=== PATIENT | female | born 1970 | race Caucasian/White ===

== ENCOUNTER 2017-09-25 06:37 | Inpatient (IN) | payer BC ==
[2017-09-25] VITALS (19 sets, daily range): BP systolic 81–133; BP diastolic 39–76
[~2017-09-25] VITALS: Ht 156 cm; Wt 54.9 kg
[2017-09-25] MEDS ORDERED: cefOXitin Sod 2 GM in D5W 110 ML IVPB ONE (07:00)
[2017-09-25] MEDS ORDERED: cefOXitin 2gm Inj ONE (07:11)
[2017-09-25] MEDS ORDERED: Bupivacaine 0.5% Inj 30 ml vial INJ ONE (07:12)
[2017-09-25] MEDS ORDERED: Ropivacaine 5mg/ml Vial 30ml INJ ONE (07:12)
[2017-09-25] MEDS: D5 1/2NS w/KCl 20mEq 1,000 ML IV SCH ×3 (07:26→23:57)
--- NOTE | 2017-09-25 07:26 | Pre-Procedure Note/Attestation ---
Pre-Procedure Note/Attestation Complete Prior to Procedure Planned Procedure: not applicable Procedure Narrative: laparoscopically assisted vaginal hysterectomy, possible bilateral salpingectomy , possible total abdominal hysterectomy Indications for Procedure Pre-Operative Diagnosis: symptomatic uterine fibroids Attestation I attest that I discussed the nature of the procedure; its benefits; risks and complications; and alternatives (and the risks and benefits of such alternatives ), prior to the procedure, with the patient (or the patient's legal used equipment sales representative). I attest that, if there was a reasonable possibility of needing a blood transfusion, the patient (or the patient's legal used equipment sales representative) was given the [place] Department [employer] Services standardized written summary, pursuant to the Perico Alex Blood Safety Act ([place] Health and Safety Code # 1645, as amended). I attest that I re-evaluated the patient just prior to the surgery and that there has been no change in the patient's H&P, except as documented below: MILAGRO GARDINER Sep 25, 2017 07:26
[2017-09-25] MEDS ORDERED: ProvayBlue 5mg/ml 10ml amp INJ ONE (07:30)
[2017-09-25] MEDS ORDERED: Ketorolac 30mg Inj IV PRN ×2 (07:30→10:45)
[2017-09-25] MEDS ORDERED: Norco 10mg/325mg tab ORAL PRN (07:30)
[2017-09-25] MEDS ORDERED: DiphenhydrAMINE 50mg/ml Inj IVP PRN (07:30)
[2017-09-25] MEDS ORDERED: HYDROmorphone 1mg/ml Carpuject IVP PRN ×2 (07:30→15:30)
[2017-09-25] MEDS ORDERED: Zolpidem 5mg tab ORAL PRN (07:30)
[2017-09-25] MEDS ORDERED: WELLNESS FORMULA PO (07:40)
[2017-09-25] MEDS ORDERED: FOLATE PO (07:40)
[2017-09-25] MEDS ORDERED: [UNRECOGNIZED DRUG - OTHER] PO (07:40)
[2017-09-25] MEDS ORDERED: [UNRECOGNIZED DRUG - OTHER] PO (07:40)
[2017-09-25] MEDS ORDERED: NS Irrig 1000ml IRRIG ONE (08:00)
--- NOTE | 2017-09-25 10:33 | Anethesia Preoperative Eval ---
Anesthesia Pre-op PMH/ROS General Date of Evaluation: Sep 25, 2017 Time of Evaluation: 07:00 Anesthesiologist: joselin ASA Score: ASA 1 Mallampati Score Class I : Soft palate, uvula, fauces, pillars visible Class II: Soft palate, uvula, fauces visible Class III: Soft palate, base of uvula visible Class IV: Only hard plate visible Mallampati Classification: Class I Anesthesia History: none Family History: no anesthesia problems Allergies: Coded Allergies: No Known Allergies (Unverified , 09/24/17) Anesthesia Pre-op Phys. Exam Physician Exam Last Vital Signs Date Time Temp Pulse Resp B/P (MAP) Pulse Ox O2 Delivery O2 Flow Rate FiO2 09/25/17 07:33 98.2 92 20 133/76 100 Room Air Airway Exam Mallampati Score: Class I Anesthesia Pre-op A/P Labs Chemistry Test 09/25/17 07:35 Human Chorionic Gonadotropin, Qual Negative Serum Test Test 09/25/17 07:35 Human Chorionic Gonadotropin, Qual Negative Martni Castrejon MD Sep 25, 2017 10:33
[2017-09-25] MEDS ORDERED: Hydromorphone 0.5mg/0.5ml inj IVP PRN (10:45)
[2017-09-25] MEDS ORDERED: fentaNYL 100 mcg/2 mL IV PRN (10:45)
--- NOTE | 2017-09-25 11:45 | Immediate Post-Op Evaluation ---
Immediate Post-Op Evalulation Immediate Post-Op Evalulation Procedure: lap ass vag hystrectomy Date of Evaluation: Sep 25, 2017 Time of Evaluation: 11:44 IV Fluids: 750 Estimated Blood Loss: 350 Urinary Output: 200 Nausea: No Vomiting: No Patient Status: awake Given Within 1 Hr of Incision: Yes Martin Castrejon MD Sep 25, 2017 11:45
[2017-09-25] MEDS: Norco 5mg/325mg tab ORAL PRN (15:34)
[2017-09-25] MEDS ORDERED: ceFAZolin sod 1 GM in D5W 55 ML IV ONE (16:00)
[2017-09-25] MEDS ORDERED: Ketorolac 30mg Inj IV SCH (16:00)
[2017-09-25] MEDS: Docusate 100mg cap ORAL SCH (17:33)
[2017-09-25] MEDS: Ketorolac 30mg Inj IV SCH (18:13)
[2017-09-25 23:55] LABS: MEAN CORPUSCULAR HEMOGLOBIN 31.1 PG (27.0-31.0); MEAN CORPUSCULAR HGB CONC 33.7 G/DL (32.0-36.0); MEAN CORPUSCULAR VOLUME 92 FL (80-99); MEAN PLATELET VOLUME 8.5 FL (6.5-10.1); PLATELET COUNT 215 K/UL (150-450); RED BLOOD COUNT 2.64 M/UL (4.20-5.40); RED CELL DISTRIBUTION WIDTH 12.3 % (11.6-14.8); WHITE BLOOD COUNT 12.9 K/UL (4.8-10.8)
[2017-09-26] VITALS (8 sets, daily range): BP systolic 105–132; BP diastolic 61–72
[2017-09-26 00:23] LABS: BAND NEUTROPHILS % (MANUAL) 0 % (0-8); BASOPHILS % (MANUAL) 0 % (0-2); EOSINOPHILS % (MANUAL) 0 % (0-3); LYMPHOCYTES % (MANUAL) 6 % (20-45); NEUTROPHILS % (MANUAL) 91 % (45-75); PLATELET ESTIMATE ADEQUATE; PLATELET MORPHOLOGY NORMAL; TOTAL CELLS COUNTED 100
[2017-09-26] MEDS: Ketorolac 30mg Inj IV SCH ×2 (01:06→07:08)
--- NOTE | 2017-09-26 01:07 | Brief Operative Note ---
Immediate Post Operative Note Operative Note Pre-op Diagnosis: symptomatic uterine fibroids Procedure: laparoscopically assisted vaginal hysterectomy and bilateral salpingectomy Post-op Diagnosis: same Surgeon: cheyanne gardiner Solution Designer: adelia sánchez Anesthesia: general Specimen: yes Complications: none Condition: stable Fluids: 750cc Estimated Blood Loss: volume - 350cc Drains: none Implant(s) used?: No CHEYANNE GARDINER Sep 26, 2017 01:07
[2017-09-26] MEDS: Norco 5mg/325mg tab ORAL PRN ×2 (04:59→19:17)
[2017-09-26] MEDS: D5 1/2NS w/KCl 20mEq 1,000 ML IV SCH (07:32)
[2017-09-26 07:47] LABS: MEAN CORPUSCULAR HEMOGLOBIN 31.6 PG (27.0-31.0); MEAN CORPUSCULAR HGB CONC 34.2 G/DL (32.0-36.0); MEAN CORPUSCULAR VOLUME 92 FL (80-99); MEAN PLATELET VOLUME 8.1 FL (6.5-10.1); PLATELET COUNT 209 K/UL (150-450); RED BLOOD COUNT 2.24 M/UL (4.20-5.40); RED CELL DISTRIBUTION WIDTH 12.6 % (11.6-14.8); WHITE BLOOD COUNT 12.6 K/UL (4.8-10.8)
[2017-09-26] MEDS: Docusate 100mg cap ORAL SCH ×2 (09:00→18:00)
[2017-09-26 09:10] LABS: ANION GAP 7 mmol/L (5-15); CALCIUM 7.5 MG/DL (8.5-10.1); CARBON DIOXIDE 23 MMOL/L (21-32); CHLORIDE 105 MMOL/L (98-107); CREATININE 0.9 MG/DL (0.55-1.30); GLOMERULAR FILTRATION RATE > 60 mL/min (>60); POTASSIUM 5.1 MMOL/L (3.5-5.1); SODIUM 135 MMOL/L (136-145)
[2017-09-26 09:24] LABS: MEAN CORPUSCULAR HEMOGLOBIN 30.9 PG (27.0-31.0); MEAN CORPUSCULAR HGB CONC 33.1 G/DL (32.0-36.0); MEAN CORPUSCULAR VOLUME 93 FL (80-99); MEAN PLATELET VOLUME 6.5 FL (6.5-10.1); PLATELET COUNT 202 K/UL (150-450); RED BLOOD COUNT 2.12 M/UL (4.20-5.40); RED CELL DISTRIBUTION WIDTH 12.6 % (11.6-14.8); WHITE BLOOD COUNT 12.1 K/UL (4.8-10.8)
[2017-09-26 09:54] LABS: BAND NEUTROPHILS % (MANUAL) 5 % (0-8); BASOPHILS % (MANUAL) 0 % (0-2); EOSINOPHILS % (MANUAL) 0 % (0-3); LYMPHOCYTES % (MANUAL) 18 % (20-45); NEUTROPHILS % (MANUAL) 70 % (45-75); PLATELET ESTIMATE ADEQUATE; PLATELET MORPHOLOGY NORMAL; TOTAL CELLS COUNTED 100
[2017-09-26] MEDS ORDERED: DiphenhydrAMINE 50mg/ml Inj IVP ONE (10:00)
[2017-09-26 10:23] LABS: BAND NEUTROPHILS % (MANUAL) 0 % (0-8); BASOPHILS % (MANUAL) 0 % (0-2); EOSINOPHILS % (MANUAL) 0 % (0-3); LYMPHOCYTES % (MANUAL) 16 % (20-45); NEUTROPHILS % (MANUAL) 82 % (45-75); PLATELET ESTIMATE ADEQUATE; PLATELET MORPHOLOGY NORMAL; TOTAL CELLS COUNTED 100
--- NOTE | 2017-09-26 10:41 | 48 Hour Post Anesthesia Eval ---
Post Anesthesia Evaluation Procedure: lap ass vag hystrectomy Date of Evaluation: Sep 26, 2017 Time of Evaluation: 10:36 Blood Pressure Systolic: 109 0: 72 Pulse Rate: 104 Respiratory Rate: 22 Temperature (Fahrenheit): 97.2 O2 Sat by Pulse Oximetry: 98 Airway: patent Nausea: No Vomiting: No Pain Intensity: 3 Hydration Status: adequate Cardiopulmonary Status: Last lab work result shows a significant drop in H/H values, patient slightly tachycardic, according to nursing report Dr. Galarza is aware and order for PRBC transfusion is in otherwise hemodynamically stable. Mental Status/LOC: patient returned to baseline Follow-up Care/Observations: n/a Post-Anesthesia Complications: none Follow-up care needed: N/A YUMIKO DANIELLE M.D. Sep 26, 2017 10:40
--- NOTE | 2017-09-26 12:09 | General Surgery Progress Note ---
General Surgery-Progress Note Subjective Procedure Performed laparoscopically assisted vaginal hysterectomy and bilateral salpingectomy Symptoms: pain same, passing flatus Objective Last 24 Hour Vital Signs Date Time Temp Pulse Resp B/P (MAP) Pulse Ox O2 Delivery O2 Flow Rate FiO2 09/26/17 10:40 104 22 98 09/26/17 09:51 99 Nasal Cannula 3.0 32 09/26/17 09:51 Nasal Cannula 3.0 32 09/26/17 08:04 98.0 120 18 109/72 100 Nasal Cannula 2.0 09/26/17 04:00 97.6 110 16 108/72 100 Nasal Cannula 2.0 09/26/17 00:00 98.0 99 16 110/67 100 Nasal Cannula 2.0 09/25/17 20:00 98.2 89 18 102/63 100 Nasal Cannula 2.0 09/25/17 19:00 98 Nasal Cannula 3.0 32 09/25/17 19:00 Nasal Cannula 3.0 32 09/25/17 18:43 97.6 09/25/17 16:33 97.6 09/25/17 16:00 100 Nasal Cannula 3.0 09/25/17 16:00 98.1 82 18 102/51 100 09/25/17 15:45 Nasal Cannula 3.0 32 09/25/17 15:45 100 Nasal Cannula 3.0 32 09/25/17 15:15 97.7 82 18 107/62 100 Nasal Cannula 3.0 09/25/17 14:00 98.1 80 20 107/62 100 Nasal Cannula 3.0 09/25/17 13:33 97.6 75 21 100/52 100 Nasal Cannula 3.0 09/25/17 13:15 75 21 100/53 100 Nasal Cannula 3.0 09/25/17 13:04 97.4 09/25/17 13:04 97.4 09/25/17 13:00 72 16 101/49 100 Nasal Cannula 3.0 09/25/17 12:55 66 15 99/54 100 Nasal Cannula 3.0 09/25/17 12:40 68 18 114/60 100 Nasal Cannula 3.0 09/25/17 12:30 72 21 108/61 100 Nasal Cannula 3.0 09/25/17 12:15 76 22 105/48 100 Simple Mask 6.0 09/25/17 12:03 78 24 104/53 100 Simple Mask 6.0 Dressing: dry Wound: clean, dry Drains: none Abdomen: soft, distended, present bowel sounds Extremities: edema - 2+ pedal edema bilaterally, no cyanosis Laboratory Tests Test 09/25/17 23:34 09/26/17 05:00 09/26/17 09:10 White Blood Count 12.9 K/UL (4.8-10.8) H 12.6 K/UL (4.8-10.8) H 12.1 K/UL (4.8-10.8) H Red Blood Count 2.64 M/UL (4.20-5.40) L 2.24 M/UL (4.20-5.40) L 2.12 M/UL (4.20-5.40) L Hemoglobin 8.2 G/DL (12.0-16.0) L 7.1 G/DL (12.0-16.0) L 6.5 G/DL (12.0-16.0) *L Hematocrit 24.3 % (37.0-47.0) L 20.7 % (37.0-47.0) L 19.8 % (37.0-47.0) L Mean Corpuscular Volume 92 FL (80-99) 92 FL (80-99) 93 FL (80-99) Mean Corpuscular Hemoglobin 31.1 PG (27.0-31.0) H 31.6 PG (27.0-31.0) H 30.9 PG (27.0-31.0) Mean Corpuscular Hemoglobin Concent 33.7 G/DL (32.0-36.0) 34.2 G/DL (32.0-36.0) 33.1 G/DL (32.0-36.0) Red Cell Distribution Width 12.3 % (11.6-14.8) 12.6 % (11.6-14.8) 12.6 % (11.6-14.8) Platelet Count 215 K/UL (150-450) 209 K/UL (150-450) 202 K/UL (150-450) Mean Platelet Volume 8.5 FL (6.5-10.1) 8.1 FL (6.5-10.1) 6.5 FL (6.5-10.1) Neutrophils (%) (Auto) % (45.0-75.0) % (45.0-75.0) % (45.0-75.0) Lymphocytes (%) (Auto) % (20.0-45.0) % (20.0-45.0) % (20.0-45.0) Monocytes (%) (Auto) % (1.0-10.0) % (1.0-10.0) % (1.0-10.0) Eosinophils (%) (Auto) % (0.0-3.0) % (0.0-3.0) % (0.0-3.0) Basophils (%) (Auto) % (0.0-2.0) % (0.0-2.0) % (0.0-2.0) Differential Total Cells Counted 100 100 100 Neutrophils % (Manual) 91 % (45-75) H 82 % (45-75) H 70 % (45-75) Lymphocytes % (Manual) 6 % (20-45) L 16 % (20-45) L 18 % (20-45) L Monocytes % (Manual) 3 % (1-10) 2 % (1-10) 7 % (1-10) Eosinophils % (Manual) 0 % (0-3) 0 % (0-3) 0 % (0-3) Basophils % (Manual) 0 % (0-2) 0 % (0-2) 0 % (0-2) Band Neutrophils 0 % (0-8) 0 % (0-8) 5 % (0-8) Platelet Estimate Adequate Adequate Adequate Platelet Morphology Normal Normal Normal Red Blood Cell Morphology Normal Normal Sodium Level 135 MMOL/L (136-145) L Potassium Level 5.1 MMOL/L (3.5-5.1) Chloride Level 105 MMOL/L (98-107) Carbon Dioxide Level 23 MMOL/L (21-32) Anion Gap 7 mmol/L (5-15) Blood Urea Nitrogen 10 mg/dL (7-18) Creatinine 0.9 MG/DL (0.55-1.30) Estimat Glomerular Filtration Rate > 60 mL/min (>60) Glucose Level 226 MG/DL (74-106) H Calcium Level 7.5 MG/DL (8.5-10.1) L Assessment Post-op Diagnosis same Additional Comments Patient with flactuating BPs at night// normally low bp 100/60/ also goes vasovagal easlily H/H low ---- may be underestimation of Blood loss - doubt active bleed, but given mild tachycardia and low BPS at night -- normal now will transfuse and monitor// Discussed plan of action with her nurse cat (pt seen @9:00 am) pt is NPO just in case needs to go back to OR repeat HG 1/2 hour post transfusion if stable will d/c valadez and sit in chair, etc will consider 2nd unit -- type + crossed for 2 u PRBCS Plan Additional Comments edema MILAGRO GARDINER Sep 26, 2017 12:09
[2017-09-26 13:39] LABS: BASOPHILS % (AUTO) 0.4 % (0.0-2.0); EOSINOPHILS % (AUTO) 0.1 % (0.0-3.0); LYMPHOCYTES % (AUTO) 11.7 % (20.0-45.0); MEAN CORPUSCULAR HGB CONC 33.8 G/DL (32.0-36.0); MEAN CORPUSCULAR VOLUME 92 FL (80-99); MEAN PLATELET VOLUME 7.9 FL (6.5-10.1); MONOCYTES % (AUTO) 7.4 % (1.0-10.0); NEUTROPHILS % (AUTO) 80.4 % (45.0-75.0); PLATELET COUNT 177 K/UL (150-450); RED BLOOD COUNT 2.69 M/UL (4.20-5.40); RED CELL DISTRIBUTION WIDTH 11.9 % (11.6-14.8); WHITE BLOOD COUNT 11.2 K/UL (4.8-10.8)
[2017-09-26] MEDS ORDERED: NS 500ML ONE (16:10)
[2017-09-26] MEDS ORDERED: Tubing IV Blood Pump IV ONE (16:10)
[2017-09-26 18:45] LABS: BASOPHILS % (AUTO) 0.5 % (0.0-2.0); EOSINOPHILS % (AUTO) 0.3 % (0.0-3.0); LYMPHOCYTES % (AUTO) 17.9 % (20.0-45.0); MEAN CORPUSCULAR HEMOGLOBIN 30.4 PG (27.0-31.0); MEAN CORPUSCULAR HGB CONC 33.2 G/DL (32.0-36.0); MEAN CORPUSCULAR VOLUME 92 FL (80-99); MEAN PLATELET VOLUME 7.4 FL (6.5-10.1); NEUTROPHILS % (AUTO) 71.3 % (45.0-75.0); PLATELET COUNT 172 K/UL (150-450); RED BLOOD COUNT 2.63 M/UL (4.20-5.40); RED CELL DISTRIBUTION WIDTH 12.4 % (11.6-14.8); WHITE BLOOD COUNT 12.7 K/UL (4.8-10.8)
--- NOTE | 2017-09-26 20:30 | Operative Note - Dictated ---
DATE OF OPERATION: 09/25/2017 PREOPERATIVE DIAGNOSIS: Symptomatic uterine fibroids with metromenorrhagia. POSTOPERATIVE DIAGNOSIS: Symptomatic uterine fibroids with metromenorrhagia. PROCEDURE: Laparoscopically assisted vaginal hysterectomy, bilateral salpingo-oophorectomy. SURGEON: Dorothy Dominguez M.D. TAFFY CANDY MAKER: Yany Harris M.D. ANESTHESIOLOGIST: Martin Castrejon M.D. ANESTHESIA: General endotracheal. ESTIMATED BLOOD LOSS: 350 mL. URINARY OUTPUT: 200 mL. FLUIDS: 750 mL LR. FINDINGS: About [id number] fibroid uterus. Normal tubes and ovaries. PROCEDURE IN DETAIL: After ensuring informed consent, the patient was taken to the operating room where general anesthesia was induced. The patient was sterilely prepped and draped. Weighted speculum was placed in the vagina. Cervix was already dilated. HUMI-type manipulator was placed inside the uterus. Next, attention was turned to the abdomen where a small incision was made inside the umbilicus. Veress needle was placed inside the peritoneal cavity. Peritoneal cavity was distended with CO2 gas. A 10-mm trocar was placed inside the peritoneal cavity. Intraperitoneal placement was confirmed with the camera. Under direct visualization, two lateral 5-mm ports were introduced after infiltration with local. Pelvis was explored. There was a large 16-week broad fibroid uterus observed. Next, using cautery, utero-ovarian on the right side was cauterized, cut. Next, broad ligament was cauterized, cut. The right tube was removed by cauterizing and transecting and removed from the body. Next, round ligament on the right side was cauterized and cut and vesicouterine peritoneal was entered and bladder was gently pushed away from the lower uterine segment. Vesicouterine peritoneum was pushed down from the lower uterine segment. Then attention was turned to the left side where utero-ovarian was cauterized and transected. Transection was carried over to the round ligament which was distorted on the left side. It was identified, cut, transected and again vesicouterine peritoneum was pushed down from the right side as well to reveal the lower uterine segment. Uterine arteries were cauterized on the right side and partially cauterized on the left side. Then the bladder was further pushed down. Vagina was exposed and Joseph-type retractor was placed inside the vagina and pushed up and incision was made into the vagina. Joseph retractor was placed inside the vagina. Then attention was turned to the vaginal area where weighted speculum was placed. Cervix was circumferentially incised. Mucosa was pushed up. Uterosacrals were identified, grasped with Joseph's, and cut. Next, Joseph's were used to clamp along the cardinal and cut and suture-ligated until posterior cul-de-sac was identified and entered sharply. Weighted speculum was placed in the posterior cul-de-sac. Next, the left uterine artery was grasped with Joseph, transected, and suture-ligated. Next, the uterus was morcellated both by bivalving and also morcellating until it was possible to grasp the remaining cardinal ligament that was left, grasp it with a Joseph, transect, and suture ligate. Then the uterus was removed in pieces. Vagina was closed with #0 Vicryl in running stitch. Then attention was turned to the abdomen again where excellent hemostasis was assured. The right tube was grasped with bipolar, transected, and removed from the body. Then all trocars were removed under direct visualization. The infraumbilical trocar was closed with #0 Vicryl and skin was closed with 3-0 Monocryl. At the end of the procedure, all instrument and lap counts were correct x3. Dorothy Dominguez M.D. DR: PHANI JOB#: [id number] CC: MARTIN
[2017-09-27 03:12] VITALS: BP 104/70
[2017-09-27 04:00] VITALS: BP 98/58
[2017-09-27] MEDS ORDERED: LR 1000ml ONE (07:30)
[2017-09-27] MEDS ORDERED: fentaNYL 100 mcg/2 mL IV ONE (07:30)
[2017-09-27] MEDS ORDERED: NS Irrig 1000ml ONE (07:30)
[2017-09-27] MEDS ORDERED: Zemuron 50mg/5ml Inj IV ONE (07:30)
[2017-09-27] MEDS ORDERED: Sterile Water Irrig 1000ml IRRIG ONE (07:30)
[2017-09-27] MEDS ORDERED: Propofol 200mg/20ml IV ONE (07:30)
[2017-09-27 08:00] VITALS: BP 109/62
[2017-09-27] MEDS: Docusate 100mg cap ORAL SCH (09:41)
--- NOTE | 2017-09-27 09:49 | Discharge Instructions ---
Discharge Instructions Discharge Instructions Diet: bland Resume Normal Activity?: No Activity: ambulate, okay to shower For Surgical Patients Dressing Care: may change May shower: Yes For Congestive Heart Failure Reminder Report to your physician any weight gain of 5 pounds or more in one week. MILAGRO GARDINER Sep 27, 2017 09:49
--- NOTE | 2017-09-27 09:49 | General Surgery Progress Note ---
General Surgery-Progress Note Subjective Procedure Performed laparoscopically assisted vaginal hysterectomy and bilateral salpingectomy Symptoms: improved, pain increased, voiding well, passing flatus Objective Last 24 Hour Vital Signs Date Time Temp Pulse Resp B/P (MAP) Pulse Ox O2 Delivery O2 Flow Rate FiO2 09/27/17 08:00 98.7 116 18 109/62 98 Room Air 09/27/17 04:00 98.9 109 18 98/58 97 Room Air 09/27/17 03:12 97.9 105 18 104/70 97 09/27/17 01:43 99 Nasal Cannula 3.0 32 09/27/17 01:43 Nasal Cannula 3.0 32 09/26/17 23:59 98.1 100 18 119/70 100 09/26/17 23:44 98.0 110 18 105/65 98 09/26/17 20:02 98.6 09/26/17 20:00 99.6 124 18 112/61 98 09/26/17 16:30 99 Room Air 09/26/17 16:01 98.6 104 18 132/72 97 Nasal Cannula 2.0 09/26/17 12:10 98.0 102 20 111/65 100 Nasal Cannula 2.0 09/26/17 10:40 104 22 98 09/26/17 09:51 99 Nasal Cannula 3.0 32 09/26/17 09:51 Nasal Cannula 3.0 32 Dressing: dry Wound: clean, dry, intact Drains: none Cardiovascular: RSR Abdomen: soft, distended - greatley decreased from yesterday and nontender, present bowel sounds Extremities: edema - mild edema Laboratory Tests Test 09/26/17 13:20 09/26/17 17:57 White Blood Count 11.2 K/UL (4.8-10.8) H 12.7 K/UL (4.8-10.8) H Red Blood Count 2.69 M/UL (4.20-5.40) L 2.63 M/UL (4.20-5.40) L Hemoglobin 8.3 G/DL (12.0-16.0) L 8.0 G/DL (12.0-16.0) L Hematocrit 24.7 % (37.0-47.0) L 24.1 % (37.0-47.0) L Mean Corpuscular Volume 92 FL (80-99) 92 FL (80-99) Mean Corpuscular Hemoglobin 31.0 PG (27.0-31.0) 30.4 PG (27.0-31.0) Mean Corpuscular Hemoglobin Concent 33.8 G/DL (32.0-36.0) 33.2 G/DL (32.0-36.0) Red Cell Distribution Width 11.9 % (11.6-14.8) 12.4 % (11.6-14.8) Platelet Count 177 K/UL (150-450) 172 K/UL (150-450) Mean Platelet Volume 7.9 FL (6.5-10.1) 7.4 FL (6.5-10.1) Neutrophils (%) (Auto) 80.4 % (45.0-75.0) H 71.3 % (45.0-75.0) Lymphocytes (%) (Auto) 11.7 % (20.0-45.0) L 17.9 % (20.0-45.0) L Monocytes (%) (Auto) 7.4 % (1.0-10.0) 10.0 % (1.0-10.0) Eosinophils (%) (Auto) 0.1 % (0.0-3.0) 0.3 % (0.0-3.0) Basophils (%) (Auto) 0.4 % (0.0-2.0) 0.5 % (0.0-2.0) Assessment Post-op Diagnosis same Additional Comments improving greatly -- able to void, ambulate and passing flatus Plan Additional Comments d/c home in pm ? mild tachycardia ? anxiety MILAGRO GARDINER Sep 27, 2017 09:48
--- NOTE | 2017-09-27 09:54 | Discharge Summary ---
Discharge Summary Hospital Course Date of Admission Sep 25, 2017 at 06:37 Date of Discharge 09/27/2017 Admitting Diagnosis symptomatic fibroids HPI Alfredo Wyman is a 47 year old female who was admitted on Sep 25, 2017 at 06 :37 for Uterine Fibroids Procedures laparascopically assited vaginal hysterectomy Hospital Course had hypotension and tachycardia and needed to be transfused 2 uPRBs otherwise voided spontaneously and ambulated passed flatus Discharge Condition Upon Discharge: stable Discharge Disposition Patient was discharged to home with daughter and Discharge Diagnoses: Discharge Instructions Discharge Instructions Activity: ambulate, okay to shower For Surgical Patients Dressing Care: may change May shower: Yes MILAGRO GARDINER Sep 27, 2017 09:54
[2017-09-27 12:00] VITALS: BP 100/51
[2017-09-27] MEDS ORDERED: NORCO 5-325 TA1 EAC1 ORAL (16:08)
[2017-09-27] MEDS ORDERED: IBUPROFEN600 MG ORAL (16:09)
[2017-09-27 16:37] VITALS: BP 109/58
[2017-09-27] MEDS ORDERED: Tubing Blood Filter IV ONE (17:23)
[2017-09-27] MEDS ORDERED: NS 275ml ONE (17:23)
[2017-09-28 09:57] LABS: OTHERS PATHOLOGIST COMMENT
== END 2017-09-27 17:45 | disposition home or self-care (01) | DRG 743 ==
LOC: SDSOVERFLO 06:37 → 3E 14:18
PROC: 30233N1 Transfusion of Nonautologous Red Blood Cells into Peripheral Vein, Percutaneous Approach (ICD-10-PCS; principal; 2017-09-25 07:30)
PROC: 0UT9FZZ Resection of Uterus, Via Natural or Artificial Opening With Percutaneous Endoscopic Assistance (ICD-10-PCS; principal; 2017-09-25 07:30)
PROC: 0UT7FZZ Resection of Bilateral Fallopian Tubes, Via Natural or Artificial Opening With Percutaneous Endoscopic Assistance (ICD-10-PCS; principal; 2017-09-25 07:30)
PROC: 0UT2FZZ Resection of Bilateral Ovaries, Via Natural or Artificial Opening With Percutaneous Endoscopic Assistance (ICD-10-PCS; principal; 2017-09-25 07:30)
DX: D25.9 Leiomyoma of uterus, unspecified (principal); I95.9 Hypotension, unspecified; N92.1 Excessive and frequent menstruation with irregular cycle; R00.0 Tachycardia, unspecified
CPT/HCPCS: 36415; 80048; 82962; 84703; 85007; 85025; 86850; 86900; 86901; 86920; 94003; 94150; 94760; J2405

== ENCOUNTER 2017-10-21 17:30 | Inpatient (IN) | payer BC ==
[~2017-10-21] VITALS: Ht 154.9 cm; Wt 54.4 kg
[~2017-10-21 17:30] MED LIST: FOLATE PO; IBUPROFEN600 MG ORAL; NORCO 5-325 TA1 EAC1 ORAL; WELLNESS FORMULA PO; [UNRECOGNIZED DRUG - OTHER] PO; [UNRECOGNIZED DRUG - OTHER] PO
[2017-10-21 17:45] VITALS: BP 120/80
[2017-10-21 18:45] LABS: BASOPHILS % (AUTO) 0.7 % (0.0-2.0); EOSINOPHILS % (AUTO) 0.6 % (0.0-3.0); HEMATOCRIT 33.5 % (37.0-47.0); HEMOGLOBIN 10.1 G/DL (12.0-16.0); LYMPHOCYTES % (AUTO) 20.8 % (20.0-45.0); MEAN CORPUSCULAR VOLUME 93 FL (80-99); MONOCYTES % (AUTO) 8.8 % (1.0-10.0); PLATELET COUNT 343 K/UL (150-450); RED BLOOD COUNT 3.59 M/UL (4.20-5.40); RED CELL DISTRIBUTION WIDTH 12.8 % (11.6-14.8); WHITE BLOOD COUNT 8.4 K/UL (4.8-10.8)
[2017-10-21 18:49] LABS: ANION GAP 9 mmol/L (5-15); APPEARANCE,URINE CLEAR; BILIRUBIN, URINE NEGATIVE (NEGATIVE); BLOOD UREA NITROGEN 9 mg/dL (7-18); CALCIUM 9.3 MG/DL (8.5-10.1); CARBON DIOXIDE 29 MMOL/L (21-32); CHLORIDE 101 MMOL/L (98-107); COLOR,URINE PALE YELLOW; GLUCOSE, URINE (UA) NEGATIVE (NEGATIVE); KETONES,URINE 3+ (NEGATIVE); LEUKOCYTE ESTERASE ,URINE 2+ (NEGATIVE); NITRITE,URINE NEGATIVE (NEGATIVE); PH,URINE 6 (4.5-8.0); POTASSIUM 4.2 MMOL/L (3.5-5.1); PROTEIN,URINE NEGATIVE (NEGATIVE); SODIUM 139 MMOL/L (136-145); UROBILINOGEN,URINE NORMAL MG/DL (0.0-1.0)
[2017-10-21 18:53] LABS: ALANINE AMINOTRANSFERASE 12 U/L (12-78); ALBUMIN 2.9 G/DL (3.4-5.0); ALBUMIN/GLOBULIN RATIO 0.6 (1.0-2.7); ALKALINE PHOSPHATASE 78 U/L (46-116); ASPARTATE AMINO TRANSFERASE 12 U/L (15-37); BILIRUBIN,TOTAL 0.3 MG/DL (0.2-1.0)
[2017-10-21 19:45] VITALS: BP 111/74
[2017-10-21] MEDS ORDERED: Piperacillin/Tazobactam 3.375 GM in NS 110 ML IVPB ONE (20:15)
[2017-10-21] MEDS ORDERED: NS 110ml ONE (21:02)
[2017-10-21] MEDS ORDERED: Zosyn 3.375gm inj ONE (21:02)
[2017-10-21] MEDS ORDERED: Morphine Sulfate 4mg/ml Inj IVP ONE (21:30)
[2017-10-21 21:45] VITALS: BP 121/81
--- NOTE | 2017-10-21 22:34 | Emergency Room Report ---
History of Present Illness General Chief Complaint: General Complaint Source: Patient Present Illness HPI 47-year-old female presents to ED for evaluation. Patient referred by PROVIDER RELATIONS REP. Patient is status post left, hysterectomy 3 weeks ago. Patient states she's been having increased abdominal pain and fevers and chills. Patient was referred here to rule out pelvic abscess. PROVIDER RELATIONS REP is Dr. Dominguez. Patient is afebrile in triage. States pain is sharp, 4/10, lower abdomen. Denies any vaginal bleeding or discharge. Denies dysuria or hematuria. No aggravating relieving factors. Denies any other associated symptoms Allergies: Coded Allergies: No Known Allergies (Unverified , 09/24/17) Patient History Past Surgical History: hysterectomy Pertinent Family History: none Social History: Denies: smoking, alcohol use, drug use Now: No Reviewed Nursing Documentation: PMH: Agreed, PSxH: Agreed Nursing Documentation-PMH Hx Cardiac Problems: Yes Hx Cancer: No Hx Gastrointestinal Problems: Yes Hx Neurological Problems: No Review of Systems All Other Systems: negative except mentioned in HPI Physical Exam Vital Signs Date Time Temp Pulse Resp B/P (MAP) Pulse Ox O2 Delivery O2 Flow Rate FiO2 10/21/17 17:35 99.3 111 20 120/80 99 Room Air Sp02 EP Interpretation: reviewed, normal General Appearance: no apparent distress, alert, GCS 15, non-toxic Head: normocephalic, atraumatic Eyes: bilateral eye normal inspection, bilateral eye PERRL ENT: hearing grossly normal, normal pharynx, no angioedema, normal voice Neck: full range of motion, supple/symm/no masses Respiratory: chest non-tender, lungs clear, normal breath sounds, speaking full sentences Cardiovascular #1: regular rate, rhythm, no edema Cardiovascular #2: 2+ carotid (R), 2+ carotid (L), 2+ radial (R), 2+ radial (L) , 2+ dorsalis pedis (R), 2+ dorsalis pedis (L) Gastrointestinal: normal bowel sounds, soft, non-distended, no guarding, no rebound, tenderness - supraupbic Rectal: deferred Genitourinary: normal inspection, no CVA tenderness Musculoskeletal: back normal, gait/station normal, normal range of motion, non- tender Neurologic: alert, oriented x3, responsive, motor strength/tone normal, sensory intact, speech normal Psychiatric: judgement/insight normal, memory normal, mood/affect normal, no suicidal/homicidal ideation Reflexes: 3+ bicep (R), 3+ bicep (L), 3+ tricep (R), 3+ tricep (L), 3+ knee (R) , 3+ knee (L) Skin: normal color, no rash, warm/dry, well hydrated Lymphatic: no adenopathy Medical Decision Making Diagnostic Impression: Primary Impression: S/P hysterectomy Additional Impression: Pelvic abscess in female ER Course Hospital Course 47-year-old female referred here for abdominal pain. Status post instructed. Rule out pelvic abscess Differential diagnoses include: BPH, cystitis, pyelonephritis, kidney stone Clinical course Patient placed on stretcher. equipment monitor phototypesetting. After initial history and physical I ordered labs, IV fluids, UA, pain medication and CT scan Labs - no leukocytosis, Hb/Hct stable. electrolytes ok CT abdomen and pelvis - shows pelvic abscess broad spectrum abx given Case discussed with Dr. Dominguez and she agreed to accept the patient to his service for further care and support I feel this is a highly complex case requiring extensive working including EKG/ Rhythm strip, Xray/CT/US, Blood/urine lab work, repeat exams while in ED, and administration of strong opiates/narcotics for pain control, admission to hospital or close patient follow up. Diagnosis - s/p hysterectomy, pelvic abscess in female Patient admitted to floor in serious condition Labs Test 10/21/17 18:15 10/21/17 21:00 White Blood Count 8.4 K/UL (4.8-10.8) Red Blood Count 3.59 M/UL (4.20-5.40) Hemoglobin 10.1 G/DL (12.0-16.0) Hematocrit 33.5 % (37.0-47.0) Mean Corpuscular Volume 93 FL (80-99) Mean Corpuscular Hemoglobin 28.2 PG (27.0-31.0) Mean Corpuscular Hemoglobin Concent 30.2 G/DL (32.0-36.0) Red Cell Distribution Width 12.8 % (11.6-14.8) Platelet Count 343 K/UL (150-450) Mean Platelet Volume 6.2 FL (6.5-10.1) Neutrophils (%) (Auto) 69.0 % (45.0-75.0) Lymphocytes (%) (Auto) 20.8 % (20.0-45.0) Monocytes (%) (Auto) 8.8 % (1.0-10.0) Eosinophils (%) (Auto) 0.6 % (0.0-3.0) Basophils (%) (Auto) 0.7 % (0.0-2.0) Urine Color Pale yellow Urine Appearance Clear Urine pH 6 (4.5-8.0) Urine Specific [place] 1.015 (1.005-1.035) Urine Protein Negative (NEGATIVE) Urine Glucose (UA) Negative (NEGATIVE) Urine Ketones 3+ (NEGATIVE) Urine Occult Blood 4+ (NEGATIVE) Urine Nitrite Negative (NEGATIVE) Urine Bilirubin Negative (NEGATIVE) Urine Urobilinogen Normal MG/DL (0.0-1.0) Urine Leukocyte Esterase 2+ (NEGATIVE) Urine RBC 5-10 /HPF (0 - 2) Urine WBC 2-4 /HPF (0 - 2) Urine Squamous Epithelial Cells Few /LPF (NONE/OCC) Urine Bacteria Few /HPF (NONE) Sodium Level 139 MMOL/L (136-145) Potassium Level 4.2 MMOL/L (3.5-5.1) Chloride Level 101 MMOL/L (98-107) Carbon Dioxide Level 29 MMOL/L (21-32) Anion Gap 9 mmol/L (5-15) Blood Urea Nitrogen 9 mg/dL (7-18) Creatinine 1.0 MG/DL (0.55-1.30) Estimat Glomerular Filtration Rate 59.4 mL/min (>60) Glucose Level 96 MG/DL (74-106) Calcium Level 9.3 MG/DL (8.5-10.1) Total Bilirubin 0.3 MG/DL (0.2-1.0) Aspartate Amino Transf (AST/SGOT) 12 U/L (15-37) Alanine Aminotransferase (ALT/SGPT) 12 U/L (12-78) Alkaline Phosphatase 78 U/L (46-116) Total Protein 7.4 G/DL (6.4-8.2) Albumin 2.9 G/DL (3.4-5.0) Globulin 4.5 g/dL Albumin/Globulin Ratio 0.6 (1.0-2.7) Lipase 97 U/L (73-393) Lactic Acid Level 0.60 mmol/L (0.66-2.22) CT/MRI/US Diagnostic Results CT/MRI/US Diagnostic Results : Imaging Test Ordered: CT A/P Impression Pelvic Abscess Last Vital Signs Date Time Temp Pulse Resp B/P (MAP) Pulse Ox O2 Delivery O2 Flow Rate FiO2 10/21/17 17:45 99.3 76 20 120/80 99 Room Air Status: improved Disposition: ADMITTED INPATIENT Condition: Serious Referrals: NON PHYSICIAN (PCP) EMERALD PAUL M.D. Oct 21, 2017 22:34
[2017-10-21 23:25] VITALS: BP 115/71
[2017-10-22] VITALS: BP 99/65
[2017-10-22] MEDS ORDERED: HYDROmorphone 1mg/ml Carpuject IVP PRN (02:00)
[2017-10-22] MEDS ORDERED: Norco 5mg/325mg tab ORAL PRN (02:00)
[2017-10-22] MEDS ORDERED: Dextrose 5%/Lactated Ringer's 1,000 ML IV SCH (03:00)
[2017-10-22] MEDS: Clindamycin 600mg 50 ML IV SCH ×3 (03:24→18:32)
[2017-10-22 08:00] VITALS: BP 96/60
--- NOTE | 2017-10-22 09:11 | Diagnostic Imaging Report ---
Indication: Status post laparoscopic hysterectomy 3-4 weeks ago. Postoperative course complicated by a drop in hemoglobin suggestive of postoperative bleed. Patient was transfused and stable. Patient presents now with abdominal pain and low-grade fever. Technique: Continuous helical transaxial imaging of the abdomen and pelvis was obtained from the lung bases to the pubic symphysis during intravenous contrast administration. Coronal 2-D reformats were also obtained. Study obtained in a Siemens sensation [address] Automatic Exposure Control was utilized. Total Dose length Product (DLP): 644.[address] Dose Index Volume (CTDIvol): 13.68 mGy Comparison: None Findings: There is a multiloculated fluid collection within the pelvis. One component of this is just posterior to the sigmoid colon and measures about 5.2 x 3.8 cm. Another component is in the region of the cul-de-sac and operative bed measuring 5.8 x 2.7 cm on transaxial images. While abscess is certainly possible and should be considered, the collection could represent an evolving hematoma. Whether superimposed infection is present and is not known. Findings were discussed and reviewed with the [employer] staff. Percutaneous aspiration for diagnosis and/or drainage is possible if needed. The lung bases are clear. The liver, gallbladder, spleen and pancreas appear normal. Tiny cysts noted in the right kidney. Normal appendix demonstrated. No evidence of bowel obstruction. Urinary bladder is unremarkable. Uterus is absent. IMPRESSION: Multiloculated rim-enhancing collection within the pelvis. Differential diagnosis includes hematoma, infected hematoma versus abscess. Status post hysterectomy. The CT scanner at [facility] is accredited by the [employer] and the scans are performed using dose optimization techniques as appropriate to a performed exam including Automatic Exposure control.
--- NOTE | 2017-10-22 09:27 | General Progress Note ---
Subjective Constitutional: Reports: no symptoms HEENT: Reports: no symptoms Cardiovascular: Reports: no symptoms Respiratory: Reports: no symptoms Gastrointestinal/Abdominal: Reports: no symptoms Genitourinary: Reports: no symptoms Neurologic/Psychiatric: Reports: no symptoms Endocrine: Reports: no symptoms Hematologic/Lymphatic: Reports: no symptoms Allergies: Coded Allergies: No Known Allergies (Unverified , 09/24/17) Subjective s/p low grade fevers and new mild left lower quadrant pain since 10/16/2016. CT scan performed yeasterday and reviewed today with radiologist c/w fluid collection/ resolving hematoma - no gas no "capsule around" - more c/w resolving hematoma then abcess. today pain improved post antibiotics and afebrile currently. Plan is for 24 hours of IV antibiotics. ID consult for recommendation regarding discharge antibiotic management. Objective Last 24 Hour Vital Signs Date Time Temp Pulse Resp B/P (MAP) Pulse Ox O2 Delivery O2 Flow Rate FiO2 10/22/17 08:00 98.1 87 18 96/60 98 10/22/17 00:00 98.1 85 17 99/65 98 10/21/17 23:25 99.3 72 18 119/70 99 Room Air 10/21/17 23:25 99.3 71 18 115/71 99 Room Air 10/21/17 21:45 73 18 121/81 99 Room Air 10/21/17 19:45 80 15 111/74 96 Room Air 10/21/17 17:45 99.3 76 20 120/80 99 Room Air 10/21/17 17:35 99.3 111 20 120/80 99 Room Air Intake and Output 10/21/17 10/22/17 19:00 07:00 Intake Total 625 ml Balance 625 ml Intake IV Total 625 ml # Voids 2 Laboratory Tests 10/21/17 18:15: White Blood Count 8.4, Red Blood Count 3.59L, Hemoglobin 10.1L, Hematocrit 33.5L , Mean Corpuscular Volume 93, Mean Corpuscular Hemoglobin 28.2, Mean Corpuscular Hemoglobin Concent 30.2L, Red Cell Distribution Width 12.8, Platelet Count 343, Mean Platelet Volume 6.2L, Neutrophils (%) (Auto) 69.0, Lymphocytes (%) (Auto) 20.8, Monocytes (%) (Auto) 8.8, Eosinophils (%) (Auto) 0.6, Basophils (%) (Auto) 0.7, Urine Color Pale yellow, Urine Appearance Clear, Urine pH 6, Urine Specific [place] 1.015, Urine Protein Negative, Urine Glucose (UA) Negative, Urine Ketones 3+H, Urine Occult Blood 4+H, Urine Nitrite Negative , Urine Bilirubin Negative, Urine Urobilinogen Normal, Urine Leukocyte Esterase 2+H, Urine RBC 5-10H, Urine WBC 2-4, Urine Squamous Epithelial Cells Few, Urine Bacteria Few, Sodium Level 139, Potassium Level 4.2, Chloride Level 101, Carbon Dioxide Level 29, Anion Gap 9, Blood Urea Nitrogen 9, Creatinine 1.0, Estimat Glomerular Filtration Rate 59.4, Glucose Level 96, Calcium Level 9.3, Total Bilirubin 0.3, Aspartate Amino Transf (AST/SGOT) 12L, Alanine Aminotransferase ( ALT/SGPT) 12, Alkaline Phosphatase 78, Total Protein 7.4, Albumin 2.9L, Globulin 4.5, Albumin/Globulin Ratio 0.6L, Lipase 97 10/21/17 21:00: Lactic Acid Level 0.60L Height (Feet): 5 Height (Inches): 1.00 Weight (Pounds): 120 YUSMILAGRO Oct 22, 2017 09:27
[2017-10-22] MEDS: Dextrose 5%/Lactated Ringer's 1,000 ML IV SCH (11:00)
[2017-10-22 12:00] VITALS: BP 102/68
[2017-10-22] MEDS: Piperacillin/Tazobactam 3.375 GM in NS 110 ML IVPB SCH ×2 (14:07→21:41)
[2017-10-22 16:00] VITALS: BP 105/63
--- NOTE | 2017-10-22 19:00 | Infectious Diseases Prog Note ---
Assessment/Plan Assessment/Plan Full consult dictated: A) 1) post hysterectomy infected hematoma vs abscess 2) hx uterine fibroids 3) allergies - negative P) 1) continue iv zosyn and clindamycin 2) can discharge on augmentin and cipro to complete two week course of abx if remains afebrile 3) f/u imaging to see response to abx 4) d/w Dr. Dominguez 5) thank you Subjective Allergies: Coded Allergies: No Known Allergies (Unverified , 09/24/17) Objective Vital Signs Last 24 Hour Vital Signs Date Time Temp Pulse Resp B/P (MAP) Pulse Ox O2 Delivery O2 Flow Rate FiO2 10/22/17 16:00 Room Air 10/22/17 16:00 98.7 91 18 105/63 100 10/22/17 12:00 Room Air 10/22/17 12:00 98.0 90 18 102/68 98 10/22/17 08:00 Room Air 10/22/17 08:00 98.1 87 18 96/60 98 10/22/17 00:00 98.1 85 17 99/65 98 10/21/17 23:25 99.3 72 18 119/70 99 Room Air 10/21/17 23:25 99.3 71 18 115/71 99 Room Air 10/21/17 21:45 73 18 121/81 99 Room Air 10/21/17 19:45 80 15 111/74 96 Room Air Height (Feet): 5 Height (Inches): 1.00 Weight (Pounds): 120 Laboratory Tests Test 10/21/17 21:00 Lactic Acid Level 0.60 mmol/L (0.66-2.22) L Current Medications Medications (Trade) Dose Ordered Sig/Elisabeth Route PRN Reason Start Time Stop Time Status Last Admin Dose Admin Acetaminophen/ Hydrocodone Bitart ([place] 5/325) 1 tab Q6H PRN ORAL For Pain 10/22/17 02:00 10/29/17 01:59 10/22/17 18:32 Clindamycin HCl/ Dextrose 50 ml @ 100 mls/hr Q8H IV 10/22/17 03:00 10/29/17 02:59 10/22/17 18:32 Dextrose/Lactated Ringer's 1,000 ml @ 50 mls/hr Q20H IV 1/11/18 11:00 11/21/17 10:59 10/22/17 11:00 Hydromorphone HCl (Dilaudid) 0.5 mg Q3H PRN IVP Severe Pain (Pain Scale 7-10) 10/22/17 02:00 10/29/17 01:59 Piperacillin Sod/ Tazobactam Sod 3.375 gm/Sodium Chloride 110 ml @ 27.5 mls/hr EVERY 8 HOURS IVPB 10/22/17 14:00 10/27/17 13:59 10/22/17 14:07 DENNYS CONTRERAS Oct 22, 2017 19:00
--- NOTE | 2017-10-22 21:30 | Consultation ---
DATE OF CONSULTATION: 10/22/2017 CONSULTING PHYSICIAN: Evelyne Anna M.D. ADMITTING/ATTENDING PHYSICIAN: Dorothy Dominguez M.D. REASON FOR CONSULTATION: Possible pelvic abscess versus infected hematoma and history of fevers. ADMITTING DIAGNOSES: Possible pelvic abscess versus infected hematoma. HISTORY OF PRESENT ILLNESS: This is a 47-year-old female, who last month in 09/25/2017 had a hysterectomy because of uterine fibroids. The patient was noted to have several days ago fevers and abdominal pain. The patient is admitted to [facility]. The patient had a CT scan of the abdomen and pelvis was done in the ER, which showed multiloculated rim enhancing collection in the pelvis with differential diagnosis being infected hematoma versus abscess. The patient was admitted for IV antibiotics. She is currently on Zosyn and clindamycin. Infectious Disease consultation is requested for antibiotic management. We discussed case with Dr. Dorothy Dominguez who said she discussed with radiology and this is more likely probably a hematoma, but certainly could be an infected hematoma and feeling there still be a possible abscess. The patient will be continued on Zosyn and clindamycin for now. PAST MEDICAL HISTORY: Include history of hysterectomy done last month in 09/25/2017. She has a history of uterine fibroids. She is currently anemic also. No history of diabetes or hypertension. ALLERGIES: No known drug allergies. MEDICATIONS: She is currently on Zosyn, IV fluids, clindamycin, Dilaudid and hydrocodone. FAMILY HISTORY: Noncontributory. SOCIAL HISTORY: Negative for smoking, alcohol, or drug abuse. REVIEW OF SYSTEMS: CONSTITUTIONAL: She has no focal weakness. She has generalized fatigue. She has history of fevers over 100. She says currently she has had low-grade fevers. HEAD AND NECK: No thrush or dysphagia mention. CARDIAC: No chest pain. GASTROINTESTINAL: No nausea or diarrhea. GENITOURINARY: She has no dysuria or frequency. PULMONARY: No congestion of breath. SKIN: No rash. No seizures. She does have abdominal discomfort. PHYSICAL EXAMINATION: VITAL SIGNS: She has been having low-grade temperature as high as 99.3, currently temperature 98.7, pulse rate 91, respiratory rate 18, blood pressure 105/63, and saturation 100%. GENERAL: Alert and responsive, in no distress. HEAD AND NECK: Oral exam, no thrush. Eye exam, no icterus. Normocephalic. No facial droop. No neck stiffness. NECK: Supple. HEART: Regular. ABDOMEN: Soft. Positive bowel sounds. Maybe some discomfort, but rebound. LUNGS: Clear bilaterally. No rhonchi or rales. SKIN: No rash. MUSCULOSKELETAL: No effusion. Legs without cellulitis. PERIPHERAL VASCULAR: No cyanosis. NEUROLOGIC: Intact. Line sites without phlebitis. GENITOURINARY: No CVA tenderness. No Ewing. LABORATORY DATA: Laboratory data is as follows, white count 8.4 and hemoglobin 10.1. The patient's creatinine is 1.0. LFTs were noted. Urinalysis had 0 to 2 white blood cells. Positive leukocyte esterase, 5 to 10 RBCs and 2 to 4 white blood cells. Blood cultures were obtained are pending. CT scan of the abdomen and pelvis report was noted showed multiloculated rim enhancing collection within the pelvis. Differential diagnosis includes infected hematoma versus abscess status post hysterectomy. ASSESSMENT AND PLAN: 1. The patient has postoperative abdominal pain and fevers. The patient had a hysterectomy on 09/25/2017. The patient had a CT scan of the abdomen and pelvis, which showed possible infected hematoma versus abscess. Discussed with Dr. Dominguez itself seems to be more likely hematoma, but certainly could be infected and again rule out pelvic abscess versus pelvic infected hematoma. Continue Zosyn and clindamycin for now. The patient remains afebrile. Can transition to oral antibiotics, I would consider a regimen like Augmentin 875 mg by mouth twice a day plus Cipro 500 mg by mouth twice a day to complete a 2-week course of antibiotics. The patient will likely need followup imaging to see the response to antibiotic therapy with regards to the possible infected pelvic hematoma versus pelvic abscess. Again case was discussed with Dr. Dominguez. 2. Pain management per Dr. Dominguez. 3. History of uterine fibroids. 4. History of hysterectomy. 5. History of anemia. 6. No known allergies. 7. Social history is negative. 8. Family history is noncontributory. 9. MAR was note. 10. Case was discussed with RN. Thank you Dr. Dominguez for this consult. We will follow. Evelyne Anna M.D. DR: BOBY JOB#: [id number] CC:
[2017-10-23] VITALS: BP 114/61
[2017-10-23] MEDS: Clindamycin 600mg 50 ML IV SCH ×2 (02:21→10:55)
[2017-10-23 04:23] VITALS: BP 102/58
[2017-10-23] MEDS: Piperacillin/Tazobactam 3.375 GM in NS 110 ML IVPB SCH ×2 (05:18→14:14)
[2017-10-23] MEDS: Dextrose 5%/Lactated Ringer's 1,000 ML IV SCH (05:18)
[2017-10-23 08:00] VITALS: BP 100/60
--- NOTE | 2017-10-23 10:16 | General Progress Note ---
Subjective Date patient seen: Oct 23, 2017 ROS Limited/Unobtainable: Yes Constitutional: Reports: no symptoms HEENT: Reports: no symptoms Cardiovascular: Reports: no symptoms Respiratory: Reports: no symptoms Gastrointestinal/Abdominal: Reports: no symptoms, diarrhea - some diarhea - warned to call me if get worse Genitourinary: Reports: no symptoms Neurologic/Psychiatric: Reports: no symptoms Endocrine: Reports: no symptoms Hematologic/Lymphatic: Reports: no symptoms - pt afebrile -- pain almost non- existant - d/c home today on augmentin and cipro - pt to call for more fevers. pain or increased diarhea Allergies: Coded Allergies: No Known Allergies (Unverified , 09/24/17) Subjective s/p low grade fevers and new mild left lower quadrant pain since 10/16/2016. CT scan performed yeasterday and reviewed today with radiologist c/w fluid collection/ resolving hematoma - no gas no "capsule around" - more c/w resolving hematoma then abcess. today pain improved post antibiotics and afebrile currently. Plan is for 24 hours of IV antibiotics. ID consult for recommendation regarding discharge antibiotic management. Objective Last 24 Hour Vital Signs Date Time Temp Pulse Resp B/P (MAP) Pulse Ox O2 Delivery O2 Flow Rate FiO2 10/23/17 08:00 97.8 77 18 100/60 100 Room Air 10/23/17 04:23 98.4 89 18 102/58 100 Room Air 10/23/17 00:00 98.0 80 18 114/61 98 Room Air 10/22/17 19:31 98.7 10/22/17 16:00 Room Air 10/22/17 16:00 98.7 91 18 105/63 100 10/22/17 12:00 Room Air 10/22/17 12:00 98.0 90 18 102/68 98 Intake and Output 10/22/17 10/23/17 19:00 07:00 Intake Total 1735 ml 340 ml Balance 1735 ml 340 ml Intake Oral 960 ml 240 ml IV Total 775 ml 100 ml # Voids 6 1 Height (Feet): 5 Height (Inches): 1.00 Weight (Pounds): 120 MILAGRO GARDINER Oct 23, 2017 10:16
--- NOTE | 2017-10-23 10:18 | Discharge Summary ---
Discharge Summary Hospital Course Date of Admission Oct 21, 2017 at 22:10 Date of Discharge oct 23, 2017 Admitting Diagnosis pelvic abscess vs infected hematoma HPI Alfredo Wyman is a 47 year old female who was admitted on Oct 21, 2017 at 22 :10 for Pelvic Abscess Consultations infectios disease Procedures CT scan Hospital Course afebrile ambualted tolerated POS Discharge Condition Upon Discharge: stable Discharge Disposition Patient was discharged to home with family Discharge Diagnoses: MILAGRO GARDINER Oct 23, 2017 10:18
[2017-10-23 12:00] VITALS: BP 105/65
[2017-10-23 16:00] VITALS: BP 100/69
[2017-10-23] MEDS ORDERED: NS 275ml ONE (18:14)
[2017-10-23] MEDS ORDERED: Tubing IV Secondary IV ONE ×2 (18:14)
--- NOTE | 2017-10-26 12:27 | Discharge Summary ---
Discharge Summary Hospital Course Date of Admission Oct 21, 2017 at 22:10 Date of Discharge Oct 23, 2017 at 18:15 Admitting Diagnosis pelvic abscess HPI Alfredo Wyman is a 47 year old female who was admitted on Oct 21, 2017 at 22 :10 for Pelvic Abscess Hospital Course dc summary #[id number] Discharge Medications Continued Medications: Hydrocodone Bit/Acetaminophen 5-325* ([place] 5-325 Tablet*) 1 Each Tablet 1 TAB ORAL Q4H PRN for For Pain, #25 TAB Ibuprofen* (Motrin*) 600 Mg Tablet 600 MG ORAL Q6H PRN for For Pain, #25 TAB Discharge Condition Upon Discharge: stable Discharge Disposition Patient was discharged to Home (01) Discharge Diagnoses: Discharge Instructions Discharge Instructions Special Instructions I have been assigned to complete a D/C Summary on this account. I was not involved in the patient management Florecita Ledesma NP (Vanchtein) Oct 26, 2017 12:27
--- NOTE | 2017-10-27 03:02 | Discharge Summary 2 SIG ---
DATE OF ADMISSION: 10/21/2017 DATE OF DISCHARGE: 10/23/2017 REASON FOR ADMISSION: 47-year-old female, who undergone approximately three weeks ago hysterectomy, presented to emergency room for evaluation. She was referred for evaluation by her [employer]CH[employer]IC[employer] doctor. The patient reported increasing abdominal pain with fever and chills. The patient was referred to rule out pelvic abscess. In triage, the patient was afebrile, reported sharp pain 4/10 in the lower abdomen, no vaginal bleeding , no discharge, no dysuria, and no hematuria. Vital signs revealed mild tachycardia -111 and low-grade fever -99.3. No leukocytosis. Mild anemia with hemoglobin- 10.1 and hematocrit -33.5. Urinalysis was +3 ketones, +4 occult blood, +2 leukocyte esterase, mild pyuria, and few bacteria. Electrolytes were stable. LFTs within normal limits. Lactic acid- 0.6. CT of the abdomen and pelvis was done in the emergency room and revealed evidence of multiloculated rim enhancing collection within the pelvis and infected hematoma versus abscess. The patient was admitted with diagnosis of history of uterine fibroids, status post hysterectomy, possible pelvic abscess, and infected hematoma versus abscess. HOSPITAL COURSE: The patient was admitted. The patient was started on empiric antibiotics and IV fluids. ID consult was requested. CT scan was reviewed in detail. Findings were more consistent with resolving hematoma than abscess. The patient was afebrile. Pain management provided. Pain level significantly improved. Blood culture preliminary negative. ID cleared the patient for discharge on oral antibiotics: Augmentin and Cipro to complete two weeks course of antibiotics. FINAL DIAGNOSES: 1. History of uterine fibroids. 2. Status post recent hysterectomy. 3. Likely infected hematoma, resolving DISCHARGE MEDICATIONS: Prescription provided for antibiotics by ID specialist. Analgesic script provided by surgeon. DISCHARGE INSTRUCTIONS: The patient was discharged home. Follow up with [facility] as outpatient as advised. The patient to complete the course of antibiotic. Dorothy Dominguez M.D. I have been assigned to dictate discharge summary on this account and I was not involved in the patient's management. Florecita Ledesma N.P. (Vanchtein) DR: JERED JOB#: [id number] CC: MARTIN
--- NOTE | 2017-10-30 09:44 | Short Stay Surgery H&P ---
History of Present Illness History of Present Illness HPI Alfredo Wyman is a 47 year old female who was admitted on Oct 21, 2017 at 22 :10 for Pelvic Abscess. She had low grade fevers and left lower quadrant pain since thursday.able to void ambulate and regular lilibeth movements. no nausea or vomiting Patient History Allergies: Coded Allergies: No Known Allergies (Unverified , 09/24/17) PAST MEDICAL HISTORY: Past Surgeries: Social History: Patient History Narrative fevers and left lower quadrant pain for five-six day. S/p laparoscopically assisted vaginal hysterectomy and bilateral salpingectomy 3 weeks prior Medication History Scheduled [Floridix], 35 ML PO DA, (Reported) [Ultra B12 Folate], 1 TAB PO DA, (Reported) [Wellness Formula], 1 TAB PO DA, (Reported) Scheduled PRN Hydrocodone Bit/Acetaminophen 5-325* ([place] 5-325 Tablet*), 1 TAB ORAL Q4H PRN for For Pain, (Reported) Ibuprofen* (Motrin*), 600 MG ORAL Q6H PRN for For Pain, (Reported) Medication History Narrative patient admitted with possible pelvic abcess. Plan is for iv antibiotics/ review with radiologist and get an infectious disease consult. Physical Exam Vital Signs Last Vital Signs Date Time Temp Pulse Resp B/P (MAP) Pulse Ox O2 Delivery O2 Flow Rate FiO2 10/23/17 16:00 97.9 72 19 100/69 100 Room Air Plan Attestation Are the patient's medical conditions optimized for surgery? Physical Exam Vital Signs Date Time Temp Pulse Resp B/P (MAP) Pulse Ox O2 Delivery O2 Flow Rate FiO2 10/21/17 17:35 99.3 111 20 120/80 99 Room Air General Appearance: normal inspection, alert, thin Head: normocephalic, atraumatic Neck: normal inspection, full range of motion Respiratory: normal inspection, chest non-tender Cardiovascular: regular rhythm Gastrointestinal: normal bowel sounds Genitourinary: no CVA tenderness, ext genitalia/vag normal, other - vaginal cuff with in normal limits and no exudate/ tenderness to bimanual exam MILAGRO GARDINER Oct 30, 2017 09:44
== END 2017-10-23 18:15 | disposition home or self-care (01) | DRG 921 ==
LOC: EMR 20:20 → 4E 22:10 → EDBEDREQ 22:47 → 3E 10-22 07:13
DX: N99.841 Postprocedural hematoma of a genitourinary system organ or structure following other procedure (principal); Z90.710 Acquired absence of both cervix and uterus
CPT/HCPCS: 36415; 74177; 80053; 81003; 83605; 83690; 85025; 87040; 99285; S0077